=== PATIENT | male | born 1960 | race Caucasian/White ===

== ENCOUNTER → 2023-02-06 | Outpatient (CLI) | payer BC ==
[~2023-02-06] MED LIST: MULTIPLE VITAMI1 CAP PO; SYNTHROID0.175 MG PO
== END ==
LOC: COL.RAD 12:45
DX: K21.9 Gastro-esophageal reflux disease without esophagitis (principal); K44.9 Diaphragmatic hernia without obstruction or gangrene

== ENCOUNTER 2023-03-11 07:53 | Day surgery (SDC) | payer BC ==
[2023-03-11] VITALS (10 sets, daily range): BP systolic 134–161; BP diastolic 74–86; PULSE 83–89; TEMP 97.1–98.3
[~2023-03-11] VITALS: Ht 182.9 cm; Wt 95.9 kg
[~2023-03-11 07:53] MED LIST changes: +LR 1,000 ML IV SCH; -SYNTHROID0.175 MG PO; +SYNTHROID0.2 MG/TAB PO
[2023-03-11] MEDS ORDERED: Rocuronium 50 MG/5 ML Multi-Dose VIAL ONE (07:55)
[2023-03-11] MEDS ORDERED: fentaNYL 50 MCG/ML 5 ML VIAL ONE (07:55)
[2023-03-11] MEDS ORDERED: NS 10 ML IV ONE (07:56)
[2023-03-11] MEDS ORDERED: Ondansetron 4 MG/2 ML VIAL ONE (07:56)
[2023-03-11] MEDS ORDERED: dexAMETHasone 10 MG/ML VIAL ONE (07:56)
[2023-03-11] MEDS ORDERED: droPERidol 2.5 MG/ML 2 ML VIAL IV PRN (08:00)
[2023-03-11] MEDS ORDERED: fentaNYL 50 MCG/ML 2 ML VIAL IV PRN ×2 (08:00)
[2023-03-11] MEDS ORDERED: hydrALAZINE 20 MG/ML 1 ML VIAL IV PRN (08:00)
[2023-03-11] MEDS ORDERED: HYDROmorphone 2 MG/1 ML VIAL IV PRN (08:00)
[2023-03-11] MEDS ORDERED: Ondansetron 4 MG/2 ML VIAL IV PRN ×2 (08:00→11:45)
[2023-03-11] MEDS ORDERED: NORVASC 10MG10 MG PO (08:13)
--- NOTE | 2023-03-11 08:40 | NUR ---
The patient ambulated back to [facility] independently using a steady gait and appeared to tolerate the activity well. Vital signs obtained. Consent signed. 18G IV started in left hand with one stick, LR infusing without difficulty. Assessment completed. Home medications reconcilled. Call light is within reach. will be coming later to be at his bedside. Warm blanket provided. The patient denies any further needs.
[2023-03-11] MEDS ORDERED: ePHEDrine 50 MG/ML VIAL ONE (10:23)
[2023-03-11] MEDS ORDERED: Naloxone 0.4 MG/ML VIAL IV PRN (11:45)
--- NOTE | 2023-03-11 12:35 | NUR ---
PATIENT ADMITED INTO ROOM 350 POSTOP. A&O. VSS. C/O GAS POSTOP GAS PAIN, NO C/O N/V. PACU NURSE GAVE IV PAIN MEDS AND WARM BLANKET FOR C/O SHOULDER PAIN FROM GAS. PATIENT AND EDUCATED ON ROBOTIC SURGERIES/RECOVERY. IV FLUIDS INFUSING INTO LEFT HAND IV. LIQUIDS AT BEDSIDE, TOLERATING ICE CHIPS. SCD'S TO BLE. HEAD TO TOE ASSESSMENT COMPLETE. ABD LAP SITES X6 ARE CD&I WITH BANDAIDS. ORIENTED TO ROOM. CALL LIGHT IN REACH. BED ALARM ON.
--- NOTE | 2023-03-11 13:00 | NUR ---
PATIENT ASSISTED TO BATHROOM WITH 1 ASSIST TO VOID. PATIENT TOLERATED ACTIVITY.
--- NOTE | 2023-03-11 19:00 | NUR ---
RECEIVED CHANGE OF SHIFT REPORT FROM DAY SHIFT NURSE. PATIENT RESTING IN BED DURING REPORT WITH NO REPORTED NEEDS OR CONCERNS. AT BEDSIDE. DENIES CHEST PAIN/SOA AT THIS TIME. REQUESTING PAIN MEDS WHEN NEXT AVAILABLE.
--- NOTE | 2023-03-11 20:39 | NUR ---
OBSERVED SCD'S OFF, PATIENT UP IN ROOM INDEPENDENTLY. CONTINUES AT BEDSIDE.
--- NOTE | 2023-03-11 21:38 | NUR ---
PER PATIENT REQUEST, GIVEN PAIN MEDS, SEE MAR. SLEEPING IN ROOM, PATIENT BACK TO BED FROM BATHROOM, DENIES ANY OTHER NEEDS AT THIS TIME.
--- NOTE | 2023-03-11 23:12 | NUR ---
PATIENT REFUSED TO WEAR SCD AT TIHS TIME, STATED HE GETS UP IN ROOM PER SELF WITH NO DIFFICULTY.
--- NOTE | 2023-03-11 23:54 | NUR ---
PATIENT RESTING IN BED, DID NOT WAKE DURING NURSING ROUNDS. BREATHING NONLABORED AND EVEN.
[2023-03-12] VITALS (8 sets, daily range): BP systolic 143–163; BP diastolic 77–88; PULSE 81–95; TEMP 98–98.4
--- NOTE | 2023-03-12 05:16 | NUR ---
PATIENT UP TO BATHROOM INDEPENDENTLY WITH NO REPORTED PROBLEMS OR CONCERNS.
--- NOTE | 2023-03-12 06:40 | NUR ---
CHANGE OF SHIFT REPORT GIVEN TO DAY SHIFT NURSEREBECCA. PATIENT RESTING IN BED DURING REPORT WITH CALL LIGHT IN REACH, DENIES ANY NEEDS AT THIS TIME.
--- NOTE | 2023-03-12 06:49 | NUR ---
Pt doing well this morning. He reports that he has passed gas and is up getting around independently in his room and is steady on his feet. Spouse at bedside. Pt denies any needs at this time, will continue to monitor
[2023-03-12] MEDS ORDERED: Omeprazole 20 MG **** subs to Pantoprazole 40 MG PO SCH (07:00)
[2023-03-12] MEDS ORDERED: amLODIPine 10 MG TAB PO SCH (09:00)
--- NOTE | 2023-03-12 09:35 | NUR ---
diversified crops i farmworker met with pt and , Griselda [phone] at bedside to complete discharge planning. Pt reports they live together in [place]. His PCP is Dr. Solorzano and he obtains medications from [facility] with no difficulties. He uses no DME and is independent with [facility]. He has a [facility]PO[facility] listing Griselda, but it is at home. Pt intends to return home today. Discharge Plan: Home
--- NOTE | 2023-03-12 09:36 | NUR ---
Pt reports that the pain medication did help, pain tolerable at this time. Circuit Breaker Mechanic has been in and educated pt on post op diet. No other needs at this time, will continue to monitor
--- NOTE | 2023-03-12 09:46 | NUR ---
Initial visit; Patient and his thanked Solution Specialist for looking in on him and offering Spiritual Care. Solution Specialist wished him well and offered God's blessings.
[2023-03-12] MEDS ORDERED: NORCO 325 MG-51 TAB PO (12:31)
--- NOTE | 2023-03-12 13:16 | NUR ---
Reviewed discharge instructions with pt and spouse. Verbalized understanding. Pt waiting until around 3pm to discharge. No needs at this time, call light within reach
--- NOTE | 2023-03-12 15:00 | NUR ---
Pt escorted out at this time
== END 2023-03-12 15:12 | disposition home or self-care (01) ==
LOC: SDCO 07:53 → SURG 12:35 → SDCO 03-12 15:12
DX: K21.9 Gastro-esophageal reflux disease without esophagitis (principal); K44.9 Diaphragmatic hernia without obstruction or gangrene; Z85.850 Personal history of malignant neoplasm of thyroid; Z79.899 Other long term (current) drug therapy
CPT/HCPCS: OP; J0690; J1100; J2405; J2704; J3010; J7120